=== PATIENT | male | born 1955 | race Caucasian/White ===

== ENCOUNTER 2018-06-15 07:03 | Outpatient (CLI) | payer OTHER, SELFPAY ==
[2018-06-15 08:19] LABS: Cholesterol 134 mg/dL (50-200); HDL Cholesterol 66 mg/dL (40-60); LDL CHOLESTEROL 65 mg/dL (<100); Triglyceride 29 mg/dL (30-150)
== END 2018-06-15 07:23 ==
PROVIDERS: PCP Family Medicine; Visit Provider Family Medicine
DX: Z13.220 Encounter for screening for lipoid disorders (principal)
CPT/HCPCS: 36415; 80061; 83721

== ENCOUNTER 2018-08-28 07:08 | Day surgery (SDC) | payer OTHER, SELFPAY ==
--- NOTE | 2018-08-28 06:31 | COLE_ITS ---
Date of service: 08/28/18 Time of Service: 08:23 Colonoscopy Report Date of procedure: 08/28/18 Pre-op diagnosis general: Colon Cancer Screening Post-op diagnosis procedure note: other (Diverticulosis/ multiple polyps) Procedure: Colonoscopy with polypectomy by cold forceps Surgeon: Agatha Natarajan Anesthesia proc note operative: MAC (Bethany Whittington, MEDIA SUPERVISOR/ ASA 2) Estimated blood loss (mL): 5 Pathology: other (AScending Px2, transverse polyp and descending polyp) Complications: None Disposition: same day Indications: Mr. Oscar is a pleasant 62 year old female who was seen in the office for a screening colonoscopy. Her last Colonoscopy was in 2007 and was normal. Risks, benefits and complications have been reviewed. Complications include but are not limited to bleeding, pain, perforation, missed small lesion/polyp, sore throat, aspiration and adverse reaction to the medications. Questions were entertained and answered to their satisfaction and they wished to proceed. No guarantees were given or implied. Prep: Miralax/Dulcolax Procedure Start Time: :23 Procedure End Time: 09:00 Retraction Time: 27 minutes Findings: 1. ascending polyps x2 2. transverse colon polyp x1 3. descending colon polyp Procedure Description: After informed consent was obtained the patient was taken to the procedure room and placed in a left decubitous position. Monitors were applied and a time out was done. The patients name, date of , procedure, allergies to medications and metal in their body was reviewed. The patient was then sedated. Once sedated and comfortable a rectal exam was done. External exam was normal. Internal exam revealed a normal sphincter tone and no palpable masses. The scope was then introduced and retro-flexed. No internal hemorrhoids were identified. The scope was then advanced to the cecum without difficulty. The TI and appendiceal orifice were identified. The prep was good. The scope was then slowly retracted over 27 minutes back into the rectum. Polyps were removed in the ascending colon, transverse colon and descending colon. There was also diverticulosis noted in the descending and sigmoid colon.The scope was removed and the patient was woken up and taken back to Same day surgery in stable condition. The patient tolerated the procedure well and there were no immediate complications. Follow up: The patient should follow up in 3-5 years unless they develop changes in bowel habits or other new gastrointestinal complaints.
--- NOTE | 2018-08-28 06:31 | W.PM.DSUDISC ---
Discharge Plan Disposition Patient Disposition: HOME Condition: Good Discharge Details Reason For Visit: Colon Cancer Screening Attending Provider: Agatha Natarajan Primary Care Provider: Monique Vance Home Meds and New Rx's Prescriptions: Continued Shingrix (PF) 50 mcg/0.5 mL suspension for reconstitution 50 mcg IM ONCE Qty: 1 RF: 1 ibuprofen 200 MG tablet 200 mg PO PRN RF: 0 acetaminophen [Tylenol Extra Strength] 500 mg Tablet 1,000 mg PO Q6H PRNRF: 0 Discontinued bisacodyl [Dulcolax (bisacodyl)] 5 mg tablet,delayed release (DR/EC) 5 mg PO ONCE Qty: 4 RF: 0 polyethylene glycol 3350 17 gram/dose powder 255 g PO ONCE Qty: 255 RF: 0 Discharge Instructions Instructions: Colonoscopy (DC), Diverticulosis (DC), Colorectal Polyps (DC) Additional Instructions: Findings: 4 polyps Diverticulosis Follow up: 3-5 years Please call if you develop: fevers >101.5 Nausea or Vomiting Abdominal pain that is not transient DAY SURGERY UNIT POST COLONOSCOPY INSTRUCTIONS 1. Because there will be medication in your system for the next 24 hours, you may feel a little sleepy. Your coordination will be affected. Therefore: a. Do not drive or operate dangerous equipment for 24 hours. b. Do not drink alcohol beverages for 24 hours (not even beer). c. Plan to go home and rest for the day. 2. Generally there are no restrictions on your activity after a day or so has gone by, but you may feel a bit fatigued for a few days. 3 After you arrive home you may have a light meal and return to a normal diet as you can tolerate it without feeling sick to your stomach. 4. After surgery, you may feel pain or discomfort. This should be only transient, but if it persists please contact your doctor. 5. If there are any questions regarding the findings of your procedure, please feel free to contact your doctor. 6. If you are unable to contact your doctor with a problem, contact the hospital at [phone]. 7. Continue all your regular medications unless directed otherwise. I understand the above instructions and have no questions. Signature of Patient or Responsible Adult Escort Date/Time Name of Responsible Adult Escort Signature of Nurse Date/Time Activity:: Activity as Tolerated Diet:: high fiber diet Discharge Orders Discharge Orders: Discharge Order (Routine); Ordered 08/28/18 Ordered By: Agatha Natarajan DS: Diagnosis Discharge Diagnosis (1) Colorectal polyps: Status: Acute (2) S/P colonoscopy: Status: Acute
[2018-08-28 07:23] VITALS: BP 134/79; PULSE 58; RESP 16; TEMP 35.7; O2SAT 98
[2018-08-28] MEDS: Lactated Ringers 1,000 ML 80 ML IV (07:39)
--- NOTE | 2018-08-28 08:37 | BOWEL_PTH ---
PATIENT: Paola Oscar LOC: [facility] U#:[id number] AGE/SX: 62/M ROOM: RE08/28/[address]: Agatha Natarajan MD : [id number] BED: DIS: 08/28/2018 SPEC #: [id number] RECD: 08/28/18 12:42 STATUS: JANE REQ #: [id number] EMMIE: 08/28/18 08:[address]: Agatha Natarajan DEPT: Surgical Specimen RECD BY: Shelia Ward ENTERED: 08/28/18 12:42 SP TYPE: Bowel OTHR DR: Monique Vance APRN Tissues: 1 - BIOPSY BOWEL 2 - BIOPSY BOWEL 3 - BIOPSY BOWEL Procedures: GROSS AND MICRO LEVEL 4 Comments: [id number]
[2018-08-28 09:35] VITALS: BP 94/49; PULSE 54; RESP 16; TEMP 36.6; O2SAT 96
[2018-08-28 09:45] VITALS: BP 106/62; PULSE 54; RESP 16; O2SAT 95
== END 2018-08-28 10:13 | disposition home or self-care (01) ==
LOC: SUR 07:09
PROVIDERS: PCP Nurse Practitioner Family; Visit Provider Surgery
PROC: 0DJD8ZZ Inspection of Lower Intestinal Tract, Via Natural or Artificial Opening Endoscopic (ICD-10-PCS; CPT 45378; principal; 2018-08-28 08:30)
DX: Z12.11 Encounter for screening for malignant neoplasm of colon (principal); D12.2 Benign neoplasm of ascending colon; D12.3 Benign neoplasm of transverse colon; D12.4 Benign neoplasm of descending colon; K57.30 Diverticulosis of large intestine without perforation or abscess without bleeding; I10 Essential (primary) hypertension
CPT/HCPCS: 45380; 88305

== ENCOUNTER 2021-04-14 04:39 | Outpatient (CLI) | payer OTHER, SELFPAY ==
[2021-04-14 11:01] LABS: ALT 36 U/L (16-63); AST 22 U/L (15-37); Alkaline Phosphatase 97 U/L (46-116); Anion Gap 6.8 mmol/L (3-11); BUN 12 mg/dL (7-18); Bilirubin, Total 1.5 mg/dL (0.2-1.0); CO2 31.2 mmol/L (21.0-32.0); Calcium 8.8 mg/dL (8.5-10.1); Calculated LDL 52 mg/dL (<100); Chloride 104 mmol/L (98-107); Cholesterol 130 mg/dL (<200); Glucose 112 mg/dL (74-106); HDL Cholesterol 73 mg/dL (40-60); Potassium 5.4 mmol/L (3.5-5.1); Sodium 142 mmol/L (136-145); Total Protein 6.8 g/dL (6.4-8.2); Triglyceride 25 mg/dL (<150)
[2021-04-14 18:20] LABS: Hepatitis C Ab w Rflx HCV PCR Negative (Negative)
[2021-04-14 18:21] LABS: HIV-1/2 Ag & Ab Screen Negative (Negative)
== END 2021-04-14 04:40 | disposition home or self-care (01) ==
LOC: LBO 04:39
PROVIDERS: PCP Nurse Practitioner Family; Visit Provider Family Medicine
DX: Z13.220 Encounter for screening for lipoid disorders (principal); Z11.4 Encounter for screening for human immunodeficiency virus [HIV]; Z11.59 Encounter for screening for other viral diseases
CPT/HCPCS: 36415; 80053; 80061; 86803; 87389

== ENCOUNTER 2021-04-28 01:19 | Outpatient (CLI) | payer OTHER, SELFPAY ==
[2021-04-28 11:45] LABS: Anion Gap 4.1 mmol/L (3-11); BUN 16 mg/dL (7-18); CO2 32.9 mmol/L (21.0-32.0); Calcium 8.5 mg/dL (8.5-10.1); Chloride 107 mmol/L (98-107); Glucose 113 mg/dL (74-106); Potassium 5.1 mmol/L (3.5-5.1); Sodium 144 mmol/L (136-145)
== END 2021-04-28 01:20 | disposition home or self-care (01) ==
LOC: LBO 01:20
PROVIDERS: PCP Nurse Practitioner Family; Visit Provider Family Medicine
DX: E87.5 Hyperkalemia (principal)
CPT/HCPCS: 36415; 80048

== ENCOUNTER 2021-07-14 14:13 | Emergency (ER) | payer OTHER, SELFPAY ==
[2021-07-14 14:14] VITALS: BP 147/63; PULSE 72; RESP 18; TEMP 36.2; O2SAT 97
[2021-07-14 14:19] VITALS: BP 147/63; PULSE 74; O2SAT 96
[2021-07-14 14:20] VITALS: O2SAT 96
--- NOTE | 2021-07-14 14:39 | ED.GENADUL_ITS ---
Discharge Plan Disposition Patient Disposition: HOME Condition: Stable Discharge Details Clinical Impression: Crushing injury of foot, right Primary Care Provider: Robert Dooley ED Provider: Shyam Masterson Home Meds and New Rx's Prescriptions: Continued ibuprofen 200 MG tablet 200 mg PO PRN RF: 0 acetaminophen [Tylenol Extra Strength] 500 mg Tablet 1,000 mg PO Q6H PRNRF: 0 Discharge Instructions Instructions: Crush Injury (ED) Referrals: Skip Stafford MD [ [facility] STAFF PHYSICIAN] - Discharge Data Discharge Date/Time-TO BE ENTERED AT DEPARTURE: 07/14/21 15:50 Medical Decision Making 65-year-old gentleman who sustained a right foot crush injury just prior to arrival. Diffuse mild discomfort, associated ecchymosis to the great toe. Neuro, vascular, tendon intact. Skin intact. Plan is to obtain x-ray of the right foot and contact orthopedic given the mechanism of injury. X-ray is actually unremarkable. Before I could contact Dr. Stafford he actually was aware the patient was in the ER and came to personally evaluate the patient. He recommended a walking boot, plus or minus gabapentin if the patient has severe pain, and she would be happy to follow the patient as an outpatient. Upon reevaluation the patient is resting comfortably, reports that his pain is now very mild, even reports that the discoloration ecchymosis of the great toe is improving. He is actually now able to dorsi and plantar flex his toes dramatically more than he was upon initial presentation. Patient would prefer not to initiate gabapentin therapy and he would rather use [id number] Tylenol and/or Motrin. He was able to ambulate steadily using the walking boot. Strict discharge and return precautions provided, specifically regarding compartment syndrome. We did discuss the importance of resting, elevating, cool compresses every 2 hours for 20 minutes. He plans to contact the office of Dr. Stafford tomorrow to set up outpatient reevaluation. Medical Records Medical records reviewed: Yes I reviewed the patient's medical records. Imaging Data Radiologic Study: Attestation: I personally reviewed and interpreted this imaging study as follows: Imaging: X-Ray Radiologist's impression: XR FOOT RT COMPLETE CLINICAL HISTORY [ crush injury. ] [] TECHNIQUE 2D digital imaging was performed of the right foot. [Three] images were obtained. [AP, oblique and lateral][] views were obtained. COMPARISON [No exams were available for comparison] [] FINDINGS BONES: [No acute fracture is present.] [No bony destructive lesion is seen.] [There is a small plantar calcaneal spur.] JOINTS: [No dislocation present.] [] SOFT TISSUE: [Atherosclerosis is present.] [] IMPRESSION [No acute fracture or dislocation.] HPI General Mode of arrival: EMS . Date/Time Provider Initiated Documentation: 07/14/21 14:14 . Limitations to Documentation: no limitations . Information obtained by: patient and EMS . HPI Narrative: This is a 65-year-old gentleman presenting via EMS for a right foot injury, states that the bucket of a tractor pinned his foot about 15-20 minutes ago. Patient likely was wearing steel toe shoes. He states he was unable to get away from the bucket prompting him to call EMS to get help. He denies any other injury. He denies any sleeping injury from the bucket, no ankle, knee, hip pain. He reports that the pain is moderate at this time, denies any numbness, tingling, weakness. Patient denies any break skin. He states it is difficult to move his toes especially his great toe, second toe and third toe. He has not taken any medication for his symptoms. Patient denies any significant past medical history, is not anticoagulated. Related Data Home Medications Medication Instructions Recorded Confirmed ibuprofen 200 mg PO PRN 06/28/16 07/14/21 acetaminophen [Tylenol Extra 1,000 mg PO Q6H PRN 08/28/18 07/14/21 Strength] Allergies Allergy/AdvReac Type Severity Reaction Status Date / Time influenza virus vaccine, Allergy Verified 07/14/21 14:18 specific General Stated Complaint: Orthopedic MARIAH: 3 Review of Systems Constitutional Constitutional: Denies weakness Gastrointestinal Gastrointestinal: Denies nausea and Denies vomiting Musculoskeletal Musculoskeletal: Denies deformity, Reports arthralgias, Denies numbness, Reports stiffness and Denies tingling Integumentary/Breasts Skin/Breast: Denies rash Neurologic Neurologic: Denies numbness, Denies tingling and Denies weakness FOR[facility]LY [facility] Active Problem List Crushing injury of foot, right (Acute) Former smoker, stopped smoking in distant past (Acute) Overweight (BMI 25.0-29.9) (Acute) Diverticulosis (Chronic) Sensorineural hearing loss, bilateral (Acute 08/23/14) Lipid screening (Acute 10/17/14) Elevated BP without diagnosis of hypertension (Acute 10/17/14) Medical History Tubular adenoma of colon (~08/28/18) Tubulovillous adenoma of colon (~08/28/18) Surgical History Colonoscopy - IV Sedation (07/29/08) knee surgery (06/08/07) S/P colonoscopy (~08/28/18) Dr. Natarajan- 4 pre-cancerous polyps. F/U 3 years Family History Father Heart disease [place] x2 Cancer Mother Dementia Social History Smoking/Tobacco Use Status: Former Tobacco Use Tobacco: How many years used: 21 Smoking risk assessment performed?: Yes Alcohol Intake: current Alcohol Intake frequency: 0-2 drinks per day Drug use: Never Substance use type: does not use Adopted: No Caregiver/Support person: No Foster care: No Household members: spouse Housing: house Number of Children: 3 number of grandchildren: 5 Communication Needs: Hard of Hearing Education Level: high school Do you need help understanding health information?: Rarely current occupation: Retired Pets and animals: No Sexually active: Yes Do you think of yourself as: straight/heterosexual Current gender identity: male What is your relationship status?: How often do you talk on the phone with friends or family?: three or more times per week How often do you get together with friends or relatives?: three or more times per week Do you belong to any clubs or organized social groups?: yes Panel score (0-1 are the most socially isolated patients): 3 What type of physical activity do you participate in: walking and other Details: stock car racing Frequency: 1-2 times per week Paty/Temple: Gnosticist Special paty needs: No Seatbelt use: always Helmet use: Yes Helmet use: sometimes Drive intox or ride w/intox van driver: No Do you feel safe at home: Yes Do you feel safe in your relationship?: Yes Exam Const General: cooperative, healthy appearing, comfortable and no acute distress Orientation: alert, awake and oriented x3 HENMT Head: normal to inspection, normocephalic and atraumatic Eyes General: appearance normal, both eyes and all related structures Conjunctivae: conjunctivae normal Neck Neck: normal visual inspection, trachea midline and supple Resp Effort & Inspection: normal respiratory effort and able to speak in complete sentences Cardio Rate: regular rate Rhythm: regular rhythm Back/Spine/Pelvis Back: No back tenderness Skin General skin exam: no rashes or lesions noted Neuro General: patient alert, patient awake, moves all extremities and no focal motor deficits Speech: speech normal Gait: antalgic Motor: muscle tone normal throughout Sensory Exam: no sensory deficits noted Extrem General: capillary refill normal Other: Right foot, there is a subtle indentation of the skin across the dorsal aspect of the first second third and fourth MTP joints. Skin is intact. There is mild ecchymosis to the great toe. Diffuse discomfort across the metatarsophalangeal joints and toes 1 through 4. Patient is able to minimally dorsi and plantar flex all of his toes. There is no obvious deformity. Neuro, vascular, tendon intact. Normal dorsalis pedal pulse and capillary refill. Psych Appearance: grossly normal Mental Status: mental status grossly normal Course Vital Signs Vital signs: Vital Signs Temperature 36.2 C L 07/14/21 14:14 Pulse 72 07/14/21 14:14 Respiratory Rate 18 07/14/21 14:14 Blood Pressure 147/63 H 07/14/21 14:14 Pulse Oximetry 97 07/14/21 14:14 Temperature 36.2 C L 07/14/21 14:14 Temperature Source Temporal Artery Scan 07/14/21 14:14 Pulse 74 07/14/21 14:19 Respiratory Rate 18 07/14/21 14:14 Respiratory Effort Non-Labored 07/14/21 14:18 Blood Pressure 147/63 H 07/14/21 14:19 Blood Pressure Mean 83 07/14/21 14:19 Pulse Oximetry 96 07/14/21 14:20 Oxygen Delivery Method Room Air 07/14/21 14:14 Oxygen Flow Rate 0 07/14/21 14:14 Pain Level 8 07/14/21 14:18 PAWSS Have you Been Recently Intoxicated or Drunk Within the Last 30 days?: No Have you Ever Experienced Previous Episodes of Alcohol Withdrawal?: No Have you ever Experienced Withdrawal Seizures?: No Have you ever Experienced Delirium Tremens(DT)s?: No Have you ever undergone Alcohol Rehabilitation Treatment (i.e, inpt ot outpatient treatment programs)?: No Have you ever Experienced Blackouts?: No Have you ever Combined Alcohol with other Downers within the last 90 days?: No Have you ever Combined Alcohol with any other Substance of Abuse during the last 90 days?: No Positive Blood Alcohol level on Presentation? [PCS.BAL]: No Evidence of Increased Autonomic Activity (i.e. HR>120, tremor, sweating, agitation, nausea)?: No Result: 0
--- NOTE | 2021-07-14 15:03 | DI.RAD_ITS ---
Exam(s) XR FOOT RT COMPLETE EXAM: XR FOOT RT COMPLETE CLINICAL HISTORY: crush injury. TECHNIQUE: 2D digital imaging was performed of the right foot. Three images were obtained. AP, obl ique and lateral views were obtained. COMPARISON: No exams were available for comparison FINDINGS: BONES: No acute fracture is present. No bony destructive lesion is seen. There is a small plantar vesna caneal spur. JOINTS: No dislocation present. SOFT TISSUE: Atherosclerosis is present. IMPRESSION: No acute fracture or dislocation. DATA REPOSITORY: RADIATION DOSE DELIVERED:
[2021-07-14 15:51] VITALS: PULSE 76; RESP 14; O2SAT 98
== END 2021-07-14 15:50 | disposition home or self-care (01) ==
PROVIDERS: Emergency Provider Physician Assistant; PCP Family Medicine
DX: S97.81XA Crushing injury of right foot, initial encounter (principal); W23.1XXA Caught, crushed, jammed, or pinched between stationary objects, initial encounter
CPT/HCPCS: 29515; 99283; 73630

== ENCOUNTER 2021-11-13 02:16 | Outpatient (CLI) | payer OTHER, SELFPAY ==
[2021-11-13 12:08] LABS: Source Nasal/Nares
[2021-11-13 14:27] LABS: COVID-19 PCR Negative (Negative)
== END 2021-11-13 02:17 | disposition home or self-care (01) ==
LOC: LBO 02:16
PROVIDERS: PCP Family Medicine; Visit Provider Surgery
DX: Z20.822 Contact with and (suspected) exposure to COVID-19 (principal); Z01.818 Encounter for other preprocedural examination
CPT/HCPCS: 87635

== ENCOUNTER 2021-11-16 10:06 | Day surgery (SDC) | payer OTHER, SELFPAY ==
--- NOTE | 2021-11-16 06:34 | W.COLOREPORT ---
Colonoscopy Report Date of procedure: 11/16/21 Pre-op diagnosis general: Colon Cancer Screening/ Hx of polyps Post-op diagnosis procedure note: other (polyps and diverticulosis) Procedure: Colonoscopy with polypectomy Surgeon: Agatha Natarajan Anesthesia Type: General:No Airway Estimated blood loss (mL): 3 Pathology: other (ascending, transverse and descending polyps) Complications: None Disposition: same day Indications: The patient is here for Colonoscopy pre-op.?Her last screening was in 2019, which was remarkable for tubular adenomatous and tubulovillious polyps.?He has no family history of colon cancer. He has not had any bowel habit changes. -Discussed colonoscopy bowel prep as well as the procedure. Discussed possible complications of the procedure to include bleeding, pain, perforation, missed small lesion/polyp, sore throat, aspiration and adverse reaction to the medications. Questions were answered to patient?s satisfaction. No guarantees were implied or given.? Prep: Miralax/Dulcolax Procedure Start Time: 11:04 Procedure End Time: 11:32 Retraction Time: 18 minutes Findings: 3 small polyps and sigmoid diverticulosis Procedure Description: After informed consent was obtained the patient was taken to the procedure room and placed in a left decubitous position. Monitors were applied and a time out was done. The patients name, date of , procedure, allergies to medications and metal in their body was reviewed. The patient was then sedated. Once sedated and comfortable a rectal exam was done. External exam was normal. Internal exam revealed a normal sphincter tone and no palpable masses. The prostate felt smooth. The scope was then introduced and retro-flexed. No internal hemorrhoids, polyps or masses were identified on retro-flexion. The scope was then advanced to the cecum without difficulty. The ileocecal vlave and appendiceal orifice were identified. The prep was good. The scope was then slowly retracted over 18 minutes back into the rectum. Polyps were removed with cold forceps in the ascending colon, Transverse colon and descending colon. There was moderate sigmoid diverticulosis noted. The scope was removed and the patient was woken up and taken back to Same day surgery in stable condition. The patient tolerated the procedure well and there were no immediate complications. Follow up: The patient should follow up in 5 years unless they develop changes in bowel habits or other new gastrointestinal complaints.
--- NOTE | 2021-11-16 06:35 | W.PM.DSUDISC ---
Discharge Plan Disposition Patient Disposition: HOME Condition: Good Discharge Details Reason For Visit: colonoscopy Attending Provider: Agatha Natarajan Primary Care Provider: Robert Dooley Home Meds and New Rx's Prescriptions: Continued ibuprofen 200 MG tablet 200 mg PO PRN 0RF acetaminophen [Tylenol Extra Strength] 500 mg Tablet 1,000 mg PO Q6H PRN0RF omeprazole 20 mg Tablet,Delayed Release (Dr/Ec) 20 mg PO DAILY 0RF Discontinued bisacodyl [Dulcolax (bisacodyl)] 5 mg tablet,delayed release (DR/EC) 5 mg PO ONCE Qty: 4 0RF Rx Instructions: Take according to provider's instructions for colonoscopy prep. polyethylene glycol 3350 17 gram/dose powder 17 g PO ONCE Qty: 238 0RF Rx Instructions: To be taken as directed by prescriber's office for colonoscopy prep. Discharge Instructions Instructions: Diverticulosis (DC), Colorectal Polyps (DC) Additional Instructions: Findings: 3 small polyps Diverticulosis Follow up: 5 years Please call if you develop: fevers >101.5 Nausea or Vomiting Abdominal pain that is not transient Rectal bleeding that is more then a tbsp A hard abdomen and inability to pass gas DAY SURGERY UNIT POST ENDOSCOPY INSTRUCTIONS Instructions for everyone who is given Anesthesia: For your safety, please do the following for the next 24 Hours: a. Do not drive or operate dangerous equipment b. Do not drink alcohol beverages or use any recreational drugs for the first 24 hours or while taking pain medications. The medications in your body may have a reaction that can be dangerous. c. Do not make any important decisions or sign any important papers 1. Generally there are no restrictions on your activity after a day or so has gone by, but you may feel a bit fatigued for a few days. 2. After you arrive home you may have a light meal and return to a normal diet as you can tolerate it without feeling sick to your stomach. 3. After surgery, you may feel pain or discomfort. This should be only transient, but if it persists please contact your doctor. 4. If there are any questions regarding the findings of your procedure, please feel free to contact your doctor. 6. If you are unable to contact your doctor with a problem, contact the hospital at [phone]. 7. Continue all your regular medications unless directed otherwise. I understand the above instructions and have no questions. Signature of Patient or Responsible Adult Escort Date/Time Name of Responsible Adult Escort Signature of Nurse Date/Time Activity:: Activity as Tolerated Diet:: high fiber diet Discharge Orders Discharge Orders: Discharge Order (Routine); Ordered 11/16/21 Ordered By: Agatha Natarajan
[2021-11-16 10:29] VITALS: BP 139/66; PULSE 55; RESP 16; TEMP 36.7; O2SAT 100
--- NOTE | 2021-11-16 10:49 | ANES.PREOP_ITS ---
General Info Date of Service Date Performed: 11/16/21 Height: 5 ft 7.5 in Weight: 87 kg Body Mass Index (BMI): 29.5 Surgical Procedure: Operation Date: 11/16/21 10:35 Proposed Procedure Side Surgeon p Colonoscopy Agatha Natarajan MD Actual Procedure Side Surgeon p Colonoscopy Agatha Natarajan MD Meds Allergies and Home Medications Allergies Allergy/AdvReac Type Severity Reaction Status Date / Time influenza virus vaccine, Allergy Verified 11/13/21 11:33 specific Home Medication Medication Instructions Recorded ibuprofen 200 mg tablet 200 mg PO PRN 06/28/16 acetaminophen 500 mg tablet 1,000 mg PO Q6H PRN 08/28/18 (Tylenol Extra Strength) bisacodyl 5 mg tablet,delayed 5 mg PO ONCE #4 tab 11/06/21 release (Dulcolax (bisacodyl)) polyethylene glycol 3350 17 17 g PO ONCE #238 g 11/06/21 gram/dose oral powder omeprazole 20 mg tablet,delayed 20 mg PO DAILY 11/13/21 release Current Visit Medications: Current Medications Generic Name Dose Route Start Last Admin Trade Name Freq PRN Reason Stop Dose Admin Hyoscyamine Sulfate 0.125 mg 11/16/21 06:36 Hyoscyamine 0.125 Mg Sl/Oral/Chew SL DIRECTED PRN Ringer's Solution 1,000 mls @ 80 mls/hr 11/16/21 06:00 IV 12/13/21 23:59 INFUSION [facility] IV Miscellaneous Supplies 1 each 11/16/21 06:00 Iv Access IV 12/13/21 23:59 DIRECTED [facility] Ondansetron HCl 4 mg 11/16/21 06:36 Ondansetron 4 Mg/2 Ml Vial IVP Q4H PRN PRN Nausea / Vomiting Sodium Chloride 0 ml 11/16/21 06:00 Normal Saline Flush 10 Ml Syr IV 12/13/21 23:59 PRN PRN Sodium Chloride 0 ml 11/16/21 06:00 Normal Saline 10 Ml Vial IJ 12/13/21 23:59 DIRECTED PRN Sterile Water 0 ml 11/16/21 06:00 Water,Injection,Sterile 10 Ml Vial IJ 12/13/21 23:59 DIRECTED PRN PFSH Active Problems Active Problems: Problem Status Onset Code Elevated BP without diagnosis of hypertension 03/12/15 R03.0 Lipid screening 10/17/14 Z13.220 Sensorineural hearing loss, bilateral 08/23/14 H90.3 Diverticulosis Overweight (BMI 25.0-29.9) E66.3 Former smoker, stopped smoking in distant past Z87.891 Crushing injury of foot, right S97.81XA Screening for colon cancer Z12.11 Medical History Medical History COVID-19 08/2020-symptomatic Tubular adenoma of colon (~08/28/18) Medical History Comments:: Per pt. stated last colonoscopy 3 years ago, he had instances where he stopped breathing periodically. Pt reports today 11/16/21 he has not had any instances since these event. Pt denies sleep apnea. PT. IS VERY [place] WHEN HEARING AIDS ARE OUT, SO PLEASE REPLACE THEM BEFORE HE WAKES UP OR HE WILL NOT HEAR ANYTHING Surgical History Surgical History (Updated 11/16/21 @ 10:25 by Negra Irene RN) Colonoscopy - IV Sedation (07/29/08) Hx of hernia repair knee surgery (11/06/96) Pt reports the injury was in 1996 S/P colonoscopy (~08/28/18) Dr. Natarajan- 4 pre-cancerous polyps. F/U 3 years Tobacco Smoking/Tobacco Use Status: Former Tobacco Use Alcohol Alcohol Intake: current Alcohol intake frequency: 0-2 drinks per day Alcohol type: beer Substance Use Substance use: Never Substance use type: does not use Vital Signs and Lab Results Vital Signs Most Recent Vital Signs in EMR: Most Recent Vital Signs Temp Pulse Resp BP Pulse Ox 36.7 C 55 L 16 139/66 100 11/16/21 10:29 11/16/21 10:29 11/16/21 10:29 11/16/21 10:29 11/16/21 10:29 Lab Results Blood Type / Crossmatch: No Data to Display Complete Blood Count: No Data to Display Complete Metabolic Panel: No Data to Display Liver Function Panel: No Data to Display Coagulation Panel: No Data to Display Cardiac Panel: No Data to Display Arterial Blood Gas: No Data to Display Venous Blood Gas: No Data to Display Pancreas Panel: No Data to Display Thyroid Panel: No Data to Display Infectious Disease: Coronavirus (COVID-19)(PCR) Negative (Negative) 11/13/21 09:10 11/13/21 Coronavirus 2019 Source Nasal/Nares 11/13/21 09:10 11/13/21 Blood Cultures: No Data to Display Toxicology Panel: No Data to Display Anesthesia Assessment and Plan Anesthesia History Personal History: Other (Respiratory arrest ) Family History: No Family History of Anesthesia Complications Exercise Tolerance Exercise Tolerance: Metabolic Equivalents>4 Pertinent Negatives Pertinent Negatives: No Symptoms of GERD (Well controlled with medication ), No Major Cardiovascular Symptoms or Complaints, No Major Pulmonary Symptoms or Complaints and No History of CVA/TIA Cardiac & Pulmonary Exam Cardiac Exam: Normal S1/S2 Heart Sounds Pulmonary Exam: Clear Bilateral Breath Sounds Implantable Cardiac Device Does patient have a Pacemaker or an ICD?: No Airway Exam Known Difficult Airway: No Mallampati Class: 1 Mouth Opening: Normal (> 3cm) Thyromental Distance: Greater than 3 cm Neck Range of Motion: Full ROM Neck Circumference: Normal Teeth Condition: Normal Dentition Airway Comments: Bottom front teeth chipped ASA Classification ASA Score: ASA 2 Emergency Case?: No NPO Status NPO Status: NPO Clears >2 hours, Solids >8 hours Anesthesia Plan Resuscitation Status: Full Code Anesthesia Technique: General Anesthesia Airway Planned: Natural Airway Monitors Used: Standard Monitors
[2021-11-16 10:52] VITALS: BMI 29.5
[2021-11-16] MEDS: Lactated Ringers 1,000 ML 80 ML IV (10:52)
--- NOTE | 2021-11-16 11:15 | BOWEL_PTH ---
PATIENT: Paola Oscar LOC: [facility] U#:[id number] AGE/SX: 65/M ROOM: RE11/16/[address]: Agatha Natarajan MD : 1955 BED: DIS: 11/16/2021 SPEC #: [id number] RECD: 11/16/21 12:26 STATUS: JANE RETianna #: [id number] EMMIE: 11/16/21 11:[address]: Agatha Natarajan DEPT: Surgical Specimen RECD BY: Shelia Ward ENTERED: 11/16/21 12:27 SP TYPE: Bowel OTHR DR: Robert Dooley DO Tissues: 1 - BIOPSY BOWEL 2 - BIOPSY BOWEL 3 - BIOPSY BOWEL Procedures: GROSS AND MICRO LEVEL 4 Comments: [id number]
[2021-11-16 11:42] VITALS: BP 114/69; PULSE 54; RESP 20; TEMP 36.3; O2SAT 96
--- NOTE | 2021-11-16 11:44 | W.ANESPOSTOP ---
Postoperative Evaluation Date, Time and Location Date Performed: 11/16/21 Time Performed: 11:44 Patient Location: Day Surgery Unit Vital Signs Most Recent Imported Vital Signs: Most Recent Vital Signs Temp Pulse Resp BP Pulse Ox 36.7 C 55 L 16 139/66 100 11/16/21 10:29 11/16/21 10:29 11/16/21 10:29 11/16/21 10:29 11/16/21 10:29 Most Recent Manually Entered Vital Signs: Adult Blood Pressure: 114/69 Heart Rate: 54 Respirations: 10 Oxygen Saturation (%): 94 Temperature (C): 36.3 C Pain Score (0-10 Scale): 0 Pain Score Most Recent Pain Score: Most Recent Pain Score Pain Level 0 11/16/21 10:29 Assessment Mental Status: Awake (Alert & Oriented to Patient Baseline) Airway and Respiratory Function: Patent airway with normal (patient baseline) respiratory exam Cardiovascular Function: Hemodynamically Stable Hydration Status: Adequately Hydrated Nausea & Vomiting: No Nausea or Vomiting Pain: Pt. Denies Any Pain Peripheral Nerve Block: Patient did not receive a nerve block
[2021-11-16 11:45] VITALS: BP 114/69; PULSE 54; RESP 10; TEMPC 36.3; O2SAT 94
[2021-11-16 12:10] VITALS: BP 111/66; PULSE 51; RESP 20; TEMP 36.5; O2SAT 95
[2021-11-16 12:21] VITALS: BP 126/62; PULSE 52
== END 2021-11-16 12:40 | disposition home or self-care (01) ==
LOC: SUR 10:07
PROVIDERS: PCP Family Medicine; Visit Provider Surgery
PROC: 0DJD8ZZ Inspection of Lower Intestinal Tract, Via Natural or Artificial Opening Endoscopic (ICD-10-PCS; CPT 45378; principal; 2021-11-16 10:30)
DX: Z12.11 Encounter for screening for malignant neoplasm of colon (principal); K63.5 Polyp of colon; Z86.010 Personal history of colon polyps; K57.30 Diverticulosis of large intestine without perforation or abscess without bleeding
CPT/HCPCS: 45380; 88305; J2001

== ENCOUNTER 2023-08-10 15:30 | Outpatient (REF) | payer MEDICARE, SELFPAY ==
[2023-08-10 20:44] LABS: Source Nasal/Nares
[2023-08-10 21:23] LABS: COVID-19 PCR Negative (Negative)
== END 2023-08-10 15:31 | disposition home or self-care (01) ==
LOC: LBN 15:30
PROVIDERS: PCP Family Medicine; Visit Provider Physician Assistant Medical
DX: J06.9 Acute upper respiratory infection, unspecified (principal)
CPT/HCPCS: 87635; 87070

== ENCOUNTER → 2023-09-05 01:13 | Outpatient (CLI) | payer MEDICARE, SELFPAY ==
--- NOTE | 2023-09-05 07:15 | DI.US_ITS ---
Exam(s) US AAA SCREENING EXAM: US AAA SCREENING CLINICAL HISTORY: SCREENING FOR AAA, FORMER SMOKER, Z87.891 COMPARISON: No exams were available for comparison FINDINGS: Abdominal Aorta: Proximal: 2.7 x 2.7 cm Mid: 2.3 x 2.4 cm Distal: 2.2 x 2.3 cm Common Iliacs: Right: 1.3 x 1.4 cm Left: 1.5 x 1.4 cm Minimal atherosclerosis is present. IMPRESSION: No evidence of abdominal aortic aneurysm. DATA REPOSITORY:
== END ==
PROVIDERS: PCP Family Medicine; Visit Provider Family Medicine
DX: Z87.891 Personal history of nicotine dependence (principal); Z13.6 Encounter for screening for cardiovascular disorders
CPT/HCPCS: 76706

== ENCOUNTER 2023-09-05 03:51 | Outpatient (CLI) | payer MEDICARE, SELFPAY ==
[2023-09-05 10:06] LABS: ALT 29 U/L (16-63); AST 17 U/L (15-37); Albumin 3.8 g/dL (3.4-5.0); Alkaline Phosphatase 88 U/L (46-116); Anion Gap 5.2 mmol/L (3-11); BUN 9 mg/dL (7-18); Bilirubin, Total 1.7 mg/dL (0.2-1.0); CO2 31.8 mmol/L (21.0-32.0); CREATININE 0.9 mg/dL (0.70-1.30); Calcium 8.8 mg/dL (8.5-10.1); Chloride 102 mmol/L (98-107); Estimated GFR 94.78 (mL/min/1.73m2); Glucose 117 mg/dL (74-106); Potassium 4.6 mmol/L (3.5-5.1); Sodium 139 mmol/L (136-145)
== END 2023-09-05 03:52 | disposition home or self-care (01) ==
LOC: LBO 03:51
PROVIDERS: PCP Family Medicine; Referring Provider Family Medicine; Visit Provider Family Medicine
DX: R03.0 Elevated blood-pressure reading, without diagnosis of hypertension (principal)
CPT/HCPCS: 36415; 80053

== ENCOUNTER → 2023-09-14 10:58 | Outpatient (CLI) | payer MEDICARE, SELFPAY ==
--- NOTE | 2023-09-14 10:45 | DI.RAD_ITS ---
Exam(s) XR CHEST 2V PA LATERAL EXAM: XR CHEST 2V PA LATERAL CLINICAL HISTORY: SOB, cough R05.9 COUGH R06.02 SOB. TECHNIQUE: 2D digital imaging was performed. COMPARISON: No exams were available for comparison FINDINGS: 2 views: Heart size is normal. The mediastinum is not widened. Lungs are clear. No infiltrates nor pleural effusions. IMPRESSION: No acute pulmonary findings. DATA REPOSITORY: RADIATION DOSE DELIVERED:
== END ==
PROVIDERS: PCP Family Medicine; Visit Provider Nurse Practitioner
DX: R05.9 Cough, unspecified (principal); R06.02 Shortness of breath
CPT/HCPCS: 71046

== ENCOUNTER 2024-08-23 05:50 | Emergency (ER) | payer MEDICARE, SELFPAY ==
--- NOTE | 2024-08-23 05:51 | W.EDPROG ---
Date of service: 08/23/24 Time of Service: 05:51 Medical Decision Making Please see downtime documentation Quality:SDOH Health Related Social Needs: No Data to Display Discharge Plan Discharge Details Clinical Impression: Urticaria Primary Care Provider: Robert Dooley ED Provider: Abundio Johnston Home Meds and New Rx's Prescriptions: New prednisone 50 mg tablet 50 mg PO DAILY Qty: 4 0RF hydroxyzine HCl 25 mg tablet 25 mg PO BID PRNQty: 14 0RF loratadine 10 mg tablet 10 mg PO DAILY Qty: 20 0RF No Action sildenafil 50 mg tablet 50 mg PO DAILY PRN (Reason: sexual activity) Qty: 30 3RF Rx Instructions: administer 30 minutes to 4 hours before activity albuterol sulfate 90 mcg/actuation aerosol powdr breath activated 2 inh inhalation Q6H PRN (Reason: Chest tightness) Rx Instructions: 2-3 inhalations Unsure of actual dosing ibuprofen 200 MG tablet 200 mg PO PRN omeprazole 20 mg capsule,delayed release(DR/EC) 20 mg PO DAILY acetaminophen [Tylenol Extra Strength] 500 mg Tablet 1,000 mg PO Q6H PRN
== END 2024-08-23 06:41 | disposition home or self-care (01) ==
LOC: ER 09:56
PROVIDERS: Emergency Provider Student in an Organized Health Care Education/Training Program; PCP Family Medicine
DX: L50.9 Urticaria, unspecified (principal)
CPT/HCPCS: 00123; 96372; 99284; 99283

== ENCOUNTER 2024-08-23 06:32 | Emergency (ER) | payer MEDICARE, SELFPAY | END 2024-08-23 06:41 | PROVIDERS: PCP Family Medicine | DX: R21 Rash and other nonspecific skin eruption (principal); K21.9 Gastro-esophageal reflux disease without esophagitis | CPT/HCPCS: 96372; 99284; 99283 ==